=== PATIENT | female | born 1970 | race Caucasian/White ===

== ENCOUNTER 2017-10-06 09:51 | Emergency (ER) | payer OTHER ==
[~2017-10-06] VITALS: Ht 160 cm; Wt 97.5 kg
[2017-10-06] MEDS ORDERED: AZIT250T6 PO (10:20)
[2017-10-06] MEDS ORDERED: HYDR-2758 PO (10:20)
[2017-10-06] MEDS ORDERED: GUAI1TBM10 PO (10:20)
[2017-10-06] MEDS ORDERED: DIPH25CA58 PO (10:20)
--- NOTE | 2017-10-06 10:20 | PHYS DOC ---
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 Patient did travel to [facility] to be taken to spent in a librarian head conference with the [employer]. She was exposed to multiple people with similar symptoms for for 5 days began having symptoms while back in [place]. She arrives here today complaining of increased sinus drainage, ear pain on the right with a intermittently productive cough. She does not smoke, she does not any fevers, chills or sore throat just a slight burning when she coughs. Patient has no hearing loss no tinnitus in the right ear just pain. Patient has had no drainage but she's been using Sudafed and other [id number] medication to try to treat her symptoms. Patient denies any headaches but has difficulty sleeping secondary to pain in her right ear. Review of Systems Review of Systems Constitutional: Denies fever or chills [] Eyes: Denies change in visual acuity, redness, or eye pain [] HENT: Positive for nasal congestion for sore throat Respiratory: Positive for cough negative for shortness of breath Cardiovascular: No additional information not addressed in HPI [] GI: Denies abdominal pain, nausea, vomiting, bloody stools or diarrhea [] : Denies dysuria or hematuria [] Musculoskeletal: Denies back pain or joint pain [] Integument: Denies rash or skin lesions [] Neurologic: Denies headache, focal weakness or sensory changes [] Endocrine: Denies polyuria or polydipsia [] All other systems were reviewed and found to be within normal limits, except as documented in this note. Allergies Allergies Allergies Coded Allergies Type Severity Reaction Last Updated Verified Penicillins Allergy Unknown 10/06/17 Yes Physical Exam Physical Exam Other vital signs on the chart patient noted to be hypertensive which is chronic for patient. It may also be related to her pain. Patient noted to be mildly tachycardic which is likely secondary to the pain and the use of pseudoephedrine. Constitutional: Well developed, well nourished, no acute distress, non-toxic appearance. [] HENT: Normocephalic, atraumatic, bilateral external ears normal, oropharynx moist minimal erythema no tonsillar hypertrophy, no oral exudates, nose. Discharge noted, patient's right TM has eschar formed at the lower portion of the TM with significant purulent discharge behind the TM with bulging and redness left TM is noted to have significant fluid behind the ear but no bulging or redness. [] Eyes: PERRLA, EOMI, conjunctiva normal, no discharge. [] Neck: Normal range of motion, no tenderness, supple, no stridor. No significant lymphadenopathy[] Cardiovascular: Slight tachycardia noted at 102 but no murmurs gallops or rubs[] Lungs & Thorax: Bilateral breath sounds clear to auscultation [] Skin: Warm, dry, no erythema, no rash. [] Extremities: no edema. [] Neurologic: Alert and oriented X 3, normal motor function, normal sensory function, no focal deficits noted. [] Psychologic: Affect normal, judgement normal, mood normal. [] EKG EKG [] Radiology/Procedures Radiology/Procedures [] Course & Med Decision Making Course & Med Decision Making Pertinent Labs and Imaging studies reviewed. (See chart for details) []Patient presents with a productive cough and tachycardia likely secondary to her pseudoephedrine use, she is also having a right ear infection demonstrated by fluid behind the ear with fluid pushing on TM Bulging and Redness. Patient Has Had Loss for 5 Days of Symptoms Talked about the Utility of Screening for Influenza and Possibly Treating Empirically. Given the Duration of Symptoms She and Family at Bedside and Agreed That That Would Probably Not Necessary at This Time. Patient Would Prefer Actually to Have Disappeared Treatment for Her Ear Infection with oral antibiotics which will be azithromycin. We will give her a 5 day course of azithromycin plus guaifenesin and dextromethorphan and Lortab for her symptoms. Asked her to follow-up with her primary care doctor for symptoms continue or she has a question concerns. We did discuss the possibly doing a chest x-ray but given the fact we are placing him on antibiotics she is not instituted in that at this time we'll treat him empirically as if she had a pneumonia. discharge: I've spoken with the patient and/or caregivers. I've explained the patient's condition, diagnosis and treatment plan based on information available to me at this time. I've answered the patient's and/or caregivers questions and addressed any concerns. The patient and/or caregivers have a good understanding the patient's diagnosis, condition and treatment plan as can be expected at this point. Vital signs have been stabilized. The patient's condition is stable for discharge from the emergency department. The patient will pursue further outpatient evaluation with her primary care provider or other designated consulting physician as outlined in the discharge instructions. Patient and/or caregivers are agreeable to this plan of care and follow-up instructions have been explained in detail. The patient and/or caregivers have received these instructions in written format and expressed understanding of these discharge instructions. The patient and her caregivers are aware that if any significant change in condition or worsening of symptoms should prompt him to immediately return to this of the closest emergency department. If an emergent department is not readily available I would encourage him to call 911. Laith Disclaimer Laith Disclaimer This electronic medical record was generated, in whole or in part, using a voice recognition dictation system. Departure Departure: Impression: Primary Impression: Otitis media Disposition: 01 HOME, SELF-CARE Condition: STABLE Referrals: AIMEE JOSE (PCP) Patient Instructions: Otitis Media, Adult Additional Instructions: discharge: I've spoken with the patient and/or caregivers. I've explained the patient's condition, diagnosis and treatment plan based on information available to me at this time. I've answered the patient's and/or caregivers questions and addressed any concerns. The patient and/or caregivers have a good understanding the patient's diagnosis, condition and treatment plan as can be expected at this point. Vital signs have been stabilized. The patient's condition is stable for discharge from the emergency department. The patient will pursue further outpatient evaluation with her primary care provider or other designated consulting physician as outlined in the discharge instructions. Patient and/or caregivers are agreeable to this plan of care and follow-up instructions have been explained in detail. The patient and/or caregivers have received these instructions in written format and expressed understanding of these discharge instructions. The patient and her caregivers are aware that if any significant change in condition or worsening of symptoms should prompt him to immediately return to this of the closest emergency department. If an emergent department is not readily available I would encourage him to call 911. Scripts Hydrocodone Bit/Acetaminophen (HYDROCODONE-APAP 5-325 ) 1 Each Tablet 1 TAB PO PRN Q6HRS Y for PAIN for 3 Days, #10 TAB 0 Refills Prov: HUY HECK MD 10/06/17 Guaifenesin/Dextromethorphan (MUCINEX DM ER 1,200-60 MG TAB) 1 Each Tbmp.12hr 1 TAB PO BID, #20 TAB 1 Refill Prov: HUY HECK MD 10/06/17 Diphenhydramine Hcl (BENADRYL) 25 Mg Capsule 25 MG PO QID for 7 Days, #28 CAP Prov: HUY HECK MD 10/06/17 Azithromycin (AZITHROMYCIN TABLET) 250 Mg Tablet 500 MG PO DAILY for ANTI-BIOTIC for 5 Days, #10 TAB 0 Refills Please take 2 times the first day Please take one tablet day 2 through 5. Prov: HUY HECK MD 10/06/17 HUY HECK MD Oct 06, 2017 10:20
[2017-10-06 10:28] VITALS: BP 162/94
[2017-10-06] MEDS ORDERED: HYDROcodone/APAP 5/325MG 1 TAB TABLET PO ONE (10:30)
[2017-10-06] MEDS ORDERED: AZITHROMYCIN 250 MG TABLET. PO ONE (10:30)
== END 2017-10-06 10:34 | disposition home or self-care (01) ==
LOC: ER 09:51
DX: H66.91 Otitis media, unspecified, right ear (principal); I10 Essential (primary) hypertension; J02.9 Acute pharyngitis, unspecified; R09.81 Nasal congestion; Z88.0 Allergy status to penicillin
CPT/HCPCS: 99283; J0456

== ENCOUNTER 2019-08-01 12:56 | Emergency (ER) | payer OTHER ==
[~2019-08-01] VITALS: Ht 160 cm; Wt 90.3 kg
[~2019-08-01 12:56] MED LIST: AZIT250T6 PO; DIPH25CA58 PO; GUAI1TBM10 PO; HYDR-2155 PO
--- NOTE | 2019-08-01 13:06 | PHYS DOC ---
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 Patient states that she tripped and fell 4. She is not sure exactly how she injured the ankle but states that she has pins in place from previous fracture. She denies any other injuries. Patient rates her pain right now about a 4 out of 10. She states the pain is worsened with movement and with weightbearing.[] Review of Systems Review of Systems Constitutional: Denies fever or chills [] Respiratory: Denies cough or shortness of breath [] Cardiovascular: No additional information not addressed in HPI [] Musculoskeletal: Positive right foot and ankle pain [] Allergies Allergies Allergies Coded Allergies Type Severity Reaction Last Updated Verified Penicillins Allergy Unknown 10/06/17 Yes Physical Exam Physical Exam Constitutional: Well developed, well nourished, no acute distress, non-toxic appearance. [] Cardiovascular: Regular rate and rhythm[] Lungs & Thorax: Bilateral breath sounds clear to auscultation [] Extremities: Examination of the right foot demonstrates soft tissue swelling and ecchymosis in the dorsal aspect of the midfoot with tenderness to palpation in this region as well as bimalleolar region. [] Neurologic: Alert and oriented X 3. [] EKG EKG [] Radiology/Procedures Radiology/Procedures [] Impressions: PROCEDURE: FOOT RIGHT 3V Right foot 3 views, right ankle 3 views. HISTORY: Fall, twisted, Right foot 3 views were taken of the right foot. There is an oblique fracture through the distal aspect of the calcaneus at the calcaneocuboid joint best seen on the oblique view of the foot. No other fracture is noted involving the foot. Right ankle 3 views were taken of the right ankle. There are 2 screws in the medial malleolus with a plate and multiple screws in the fibula from old healed fractures. There is no other acute fracture or osseous abnormality. IMPRESSION: 1. Old healed ankle fractures. 2. No acute ankle fracture. 3. New nondisplaced oblique fracture noted at the distal lateral calcaneus at the calcaneocuboid joint. Electronically signed by: Demond Enriquez MD (08/01/2019 1:41 PM) [id number] DICTATED AND SIGNED BY: DEMOND ENRIQUEZ MD DATE: 08/01/19 1341 CC: AMBER HECK Jr. DO; AIMEE JOSE ~ Course & Med Decision Making Course & Med Decision Making Pertinent Labs and Imaging studies reviewed. (See chart for details) [] Dragon Disclaimer Dragon Disclaimer This electronic medical record was generated, in whole or in part, using a voice recognition dictation system. Departure Departure: Impression: Primary Impression: Calcaneus fracture Disposition: HOME, SELF-CARE Condition: STABLE Referrals: AIMEE JOSE (PCP) LEIDA VILLEDA MD Patient Instructions: Foot Fracture Scripts Hydrocodone Bit/Acetaminophen (NORCO 5-325 TABLET) 1 Each Tablet 1 TAB PO PRN Q6HRS PRN for PAIN, #20 TAB 0 Refills Prov: AMBER HECK Jr. DO 08/01/19 Diclofenac Sodium (DICLOFENAC SODIUM) 50 Mg Tablet.dr 1 TAB PO BID PRN for PAIN, #20 TAB Prov: AMBER HECK Jr., DO 08/01/19 Problem Qualifiers Primary Impression: Calcaneus fracture Encounter type: initial encounter Calcaneus location: unspecified portion of calcaneus Fracture type: closed Fracture alignment: displaced Laterality: right Qualified Codes: S92.001A - Unspecified fracture of right calcaneus, initial encounter for closed fracture AMBER HECK Jr., DO Aug 01, 2019 13:06
--- NOTE | 2019-08-01 13:44 | RAD ---
Right foot 3 views, right ankle 3 views. HISTORY: Fall, twisted, Right foot 3 views were taken of the right foot. There is an oblique fracture through the distal aspect of the calcaneus at the calcaneocuboid joint best seen on the oblique view of the foot. No other fracture is noted involving the foot. Right ankle 3 views were taken of the right ankle. There are 2 screws in the medial malleolus with a plate and multiple screws in the fibula from old healed fractures. There is no other acute fracture or osseous abnormality. IMPRESSION: 1. Old healed ankle fractures. 2. No acute ankle fracture. 3. New nondisplaced oblique fracture noted at the distal lateral calcaneus at the calcaneocuboid joint. Electronically signed by: Demond Enriquez MD (08/01/2019 1:41 PM) [id number]
[2019-08-01] MEDS ORDERED: HYDR-3165 PO (13:48)
[2019-08-01] MEDS ORDERED: DICL50TA4 PO (13:48)
[2019-08-01] MEDS ORDERED: HYDROcodone/APAP 7.5/325MG 1 TAB TABLET PO ONE (14:00)
[2019-08-01 14:30] VITALS: BP 144/64
== END 2019-08-01 14:34 | disposition home or self-care (01) ==
LOC: ER 12:56
DX: S92.001A Unspecified fracture of right calcaneus, initial encounter for closed fracture (principal); I10 Essential (primary) hypertension; Z88.0 Allergy status to penicillin; W01.0XXA Fall on same level from slipping, tripping and stumbling without subsequent striking against object, initial encounter; Y93.89 Activity, other specified; Y92.89 Other specified places as the place of occurrence of the external cause; Y99.8 Other external cause status
CPT/HCPCS: 29125; 73610; 73630; 99284

== ENCOUNTER → 2019-10-13 | Outpatient (CLI) | payer OTHER ==
[~2019-10-13] MED LIST changes: +DICL50TA4 PO; +HYDR-3165 PO
--- NOTE | 2019-10-13 14:35 | RAD ---
EXAM: Axial and lateral views of the right calcaneus DATE: 10/13/2019 12:00 AM INDICATION: Right calcaneal fracture COMPARISON: 08/01/2019 FINDINGS: The known intra-articular calcaneal fracture is not well delineated on this examination given submitted projections. No definite fracture extension into the subtalar joint. Calcaneal enthesopathy. Screw plate fixation of the distal tibia and fibula. IMPRESSION: 1. The known intra-articular calcaneal fracture is not delineated on this examination given the submitted projections. Electronically signed by: Jonathan Rain MD (10/13/2019 2:32 PM) [id number]
== END | disposition home or self-care (01) ==
LOC: DXRAD 13:33
PROVIDERS: ATTEND Physician Assistant
DX: M77.51 Other enthesopathy of right foot and ankle (principal)
CPT/HCPCS: 73650